=== PATIENT | male | born 1980 | race Two or more races ===

== ENCOUNTER → 2017-05-07 | Outpatient (CLI) | payer MEDICAID | END | disposition home or self-care (01) | LOC: Rad HDHVI 13:34 | PROVIDERS: ATTEND Internal Medicine Cardiovascular Disease | DX: I50.9 Heart failure, unspecified (principal); Q21.1 Atrial septal defect | CPT/HCPCS: 93306 ==

== ENCOUNTER → 2017-06-09 | Outpatient (CLI) | payer MEDICAID ==
[2017-06-09 11:30] VITALS: BP 140/86
[2017-06-09 12:40] VITALS: BP 127/85
[2017-06-09 16:22] LABS: Basophils # (auto) 0 uL; Basophils % (auto) 0.6 % (0.0-2.0); CONDITION Y; Eosinophils # (auto) 0.4 uL; Eosinophils % (auto) 5.1 % (0.0-7.0); Hematocrit 41.8 % (41.0-53.0); Hemoglobin 14.6 g/dL (13.5-17.5); Lymphocytes # (auto) 1.6 uL; Lymphocytes % (auto) 22.1 % (10.0-50.0); Mean Corpuscular Hemoglobin 31.3 pg (28.0-32.0); Mean Corpuscular Volume 89.3 fL (80.0-100.0); Mean Platelet Volume 9.2 fL (7.4-10.4); Monocytes # (auto) 0.6 uL; Monocytes % (auto) 8.5 % (0.0-12.0); Neutrophils # (auto) 4.7 uL; Neutrophils % (auto) 63.7 % (37.0-80.0); Platelet Count (auto) 270 10^3/uL (140-450); Red Cell Distribution Width 12.7 % (11.6-16.0); White Blood Cell 7.4 10^3/uL (4.4-10.8)
[2017-06-09 16:34] LABS: INR 0.98 (0.9-1.15); Partial Thromboplastin Time 27.9 sec (22.64-33.71); Prothrombin Time 10.7 sec (9.37-12.3)
[2017-06-09 16:43] LABS: BUN/Creatinine Ratio 15.3; Calcium 8.8 mg/dL (8.5-10.1); Magnesium 2.6 mg/dL (1.6-2.6); Potassium 3.8 mmol/L (3.5-5.1)
== END | disposition home or self-care (01) ==
LOC: Rad HDHVI 10:59
PROVIDERS: ATTEND Internal Medicine Cardiovascular Disease
DX: Z01.812 Encounter for preprocedural laboratory examination (principal); I25.10 Atherosclerotic heart disease of native coronary artery without angina pectoris; I10 Essential (primary) hypertension; D64.9 Anemia, unspecified; R79.1 Abnormal coagulation profile; E83.42 Hypomagnesemia
CPT/HCPCS: 36415; 71020; 80048; 83735; 85025; 85610; 85730; 93005; G0463

== ENCOUNTER → 2017-06-26 | Day surgery (SDC) | payer MEDICAID ==
[~2017-06-26] VITALS: Ht 180.3 cm; Wt 89.8 kg
[~2017-06-26] MED LIST: ANGIOMAX 250 MG VIAL IV ONE; IOHEXOL 350 MG/ML 100ML IJ ONE; LIDOCAINE 2%HCL (LOCAL ANESTH.) INJ 20ML MDV ONE; MIDAZOLAM HCL 1MG/1ML-2 ML VIAL ONE; SODIUM CHL 0.9% 0 ML ONE; fentaNYL CITRATE 100 MCG/2 ML VL ONE
[2017-06-26 08:28] LABS: Basophils # (auto) 0 uL; Basophils % (auto) 0.3 % (0.0-2.0); CONDITION Y; Eosinophils # (auto) 0.5 uL; Eosinophils % (auto) 6.9 % (0.0-7.0); Hemoglobin 14.9 g/dL (13.5-17.5); Lymphocytes # (auto) 2.7 uL; Lymphocytes % (auto) 36.7 % (10.0-50.0); Mean Corpuscular Hemoglobin 31.1 pg (28.0-32.0); Mean Corpuscular Hgb Conc. 34.8 g/dL (32.0-36.0); Mean Corpuscular Volume 89.4 fL (80.0-100.0); Mean Platelet Volume 8.8 fL (7.4-10.4); Monocytes # (auto) 0.7 uL; Monocytes % (auto) 9.1 % (0.0-12.0); Neutrophils # (auto) 3.4 uL; Platelet Count (auto) 265 10^3/uL (140-450); Red Cell Distribution Width 12.2 % (11.6-16.0); White Blood Cell 7.3 10^3/uL (4.4-10.8)
[2017-06-26 08:36] LABS: INR 0.96 (0.9-1.15); Prothrombin Time 10.5 sec (9.37-12.3)
[2017-06-26 08:55] LABS: BUN/Creatinine Ratio 12.2; Calcium 8.7 mg/dL (8.5-10.1); Potassium 3.8 mmol/L (3.5-5.1)
== END | disposition home or self-care (01) ==
LOC: CATH 07:30
PROVIDERS: ATTEND Internal Medicine Cardiovascular Disease
DX: I31.9 Disease of pericardium, unspecified (principal)
CPT/HCPCS: 93458; C1760; C1894; J1644; J3010; J7030; Q9967; 36415; 80048; 85025; 85610; 85730; J2250

== ENCOUNTER 2017-06-27 06:52 | Observation (INO) | payer MEDICAID ==
[~2017-06-27] VITALS: Ht 180.3 cm; Wt 90.3 kg
[2017-06-27] MEDS ORDERED: SODIUM CHLORIDE 0.9% 1,000 ML IV ONE ×2 (07:20)
[2017-06-27] MEDS ORDERED: HYDROmorphone HCL 2 MG/ML VL ONE (07:22)
[2017-06-27 07:43] LABS: Basophils # (auto) 0 uL; Basophils % (auto) 0.4 % (0.0-2.0); CONDITION Y; Eosinophils # (auto) 0.5 uL; Hematocrit 43.4 % (41.0-53.0); Hemoglobin 15.1 g/dL (13.5-17.5); Lymphocytes # (auto) 2.4 uL; Lymphocytes % (auto) 23.3 % (10.0-50.0); Mean Corpuscular Hemoglobin 31.1 pg (28.0-32.0); Mean Corpuscular Hgb Conc. 34.7 g/dL (32.0-36.0); Mean Corpuscular Volume 89.7 fL (80.0-100.0); Mean Platelet Volume 8.8 fL (7.4-10.4); Monocytes # (auto) 0.6 uL; Monocytes % (auto) 5.7 % (0.0-12.0); Neutrophils # (auto) 6.7 uL; Neutrophils % (auto) 65.6 % (37.0-80.0); Platelet Count (auto) 290 10^3/uL (140-450); White Blood Cell 10.3 10^3/uL (4.4-10.8)
[2017-06-27] MEDS ORDERED: HYDROmorphone HCL 2 MG/ML VL IV ONE (07:45)
[2017-06-27] MEDS ORDERED: ONDANSETRON HCL 4 MG/2 ML VIAL IV ONE (07:45)
[2017-06-27 07:56] LABS: INR 0.98 (0.9-1.15); Partial Thromboplastin Time 27.4 sec (22.64-33.71); Prothrombin Time 10.7 sec (9.37-12.3)
[2017-06-27 08:07] LABS: Albumin 3.8 g/dL (3.4-5.0); Alkaline Phosphatase 78 U/L (45-117); Anion Gap 8 (5-15); Aspartate Aminotransferase 21 U/L (15-37); BUN/Creatinine Ratio 12.8; Bilirubin, Total 0.5 mg/dL (0.2-1.0); Blood Urea Nitrogen 12 mg/dL (7-18); Calcium 8.6 mg/dL (8.5-10.1); Carbon Dioxide 25 mmol/L (21-32); Chloride 104 mmol/L (98-107); GFR African American 116 mL/min; GFR Non-African American 96 mL/min; Glucose 102 mg/dL (74-106); Potassium 4.2 mmol/L (3.5-5.1); Sodium 137 mmol/L (136-145); Total Protein 8.8 g/dL (6.4-8.2)
[2017-06-27 11:07] VITALS: BP 122/71
== END 2017-06-27 11:43 | disposition home or self-care (01) | DRG 384 ==
LOC: ER 06:52 → OVERFLOW 09:13 → ER 11:43
PROVIDERS: ADMIT Emergency Medicine; ATTEND Emergency Medicine
DX: S31.103A Unspecified open wound of abdominal wall, right lower quadrant without penetration into peritoneal cavity, initial encounter (principal); G89.29 Other chronic pain; R07.9 Chest pain, unspecified; M54.9 Dorsalgia, unspecified; X58.XXXA Exposure to other specified factors, initial encounter; Y93.89 Activity, other specified; Y92.89 Other specified places as the place of occurrence of the external cause; Y99.8 Other external cause status
CPT/HCPCS: 36415; 71010; 80053; 84484; 85025; 85610; 85730; 96361; 96374; 96375; 99285; G0378; J1170; J7030